=== PATIENT | female | born 1995 | race African-American/Black ===

== ENCOUNTER 2017-05-22 10:46 | Emergency (ER) | payer SELFPAY ==
--- NOTE | 2017-05-22 11:43 | ER Document Report ---
ED General - General Chief Complaint: Ear Pain Stated Complaint: LEFT EAR PAIN, DRAINING Time Seen by Provider: 05/22/17 11:11 Information source: Patient, Relative TRAVEL OUTSIDE OF THE [place] IN LAST 30 DAYS: No - HPI Onset/Duration: Gradual Quality of pain: Pressure, Sharp Severity: Mild Pain Level: 2 Associated symptoms: None Exacerbated by: Denies Relieved by: Denies - Related Data Allergies/Adverse Reactions: No Known Allergies Allergy (Verified 05/22/17 10:57) Past Medical History - Social History Smoking Status: Never Smoker Chew tobacco use (# tins/day): No Frequency of alcohol use: None Drug Abuse: Marijuana Family History: Reviewed & Not Pertinent Renal/ Medical History: Denies: Hx Peritoneal Dialysis Surgical Hx: Negative - Immunizations Hx Diphtheria, Pertussis, Tetanus Vaccination: Yes - not within 5 years of 2014 Review of Systems - Review of Systems Constitutional: No symptoms reported EENT: Ear pain, Ear discharge Cardiovascular: No symptoms reported Respiratory: No symptoms reported Musculoskeletal: No symptoms reported Skin: No symptoms reported Neurological/Psychological: No symptoms reported Physical Exam - Vital signs Vitals: Temp Pulse Resp BP Pulse Ox 98.7 F 85 14 114/70 98 05/22/17 10:54 05/22/17 10:54 05/22/17 10:54 05/22/17 10:54 05/22/17 10:54 - General General appearance: Appears well, Alert, Anxious - HEENT Head: Normocephalic, Atraumatic Ears: Normal External canal: Normal - Serous drainage from the left ear cannot visualize the tympanic membrane no external signs of swelling or requirement for WIC Tympanic membrane: Loss of landmarks Mouth/Lips: Normal Pharynx: Normal Neck: Normal - Respiratory Respiratory status: No respiratory distress Chest status: Nontender Breath sounds: Normal Chest palpation: Normal - Cardiovascular Rhythm: Regular Heart sounds: Normal auscultation Murmur: No - Neurological Neuro grossly intact: Yes Cognition: Normal Orientation: AAOx4 Ritu Coma Scale Eye Opening: Spontaneous [place] Coma Scale Verbal: Oriented [place] Coma Scale Motor: Obeys Commands [place] Coma Scale Total: 15 Speech: Normal Motor strength normal: LUE, RUE, LLE, RLE Sensory: Normal Course - Re-evaluation Re-evalutation: 05/22/17 15:32 Patient presents emergency department drainage from her left ear. She has wax in her ear since she has been using Tk pins to take it out in addition to Q- tips and peroxide. She said it felt a little irritated a day or 2 ago when she woke up this morning there was drainage on the pillow. She is hearing properly she has a serous otitis media. No pain with external manipulation of the ear or mastoiditis. Cannot visualize the tympanic membrane is it is behind the drainage. Placed her on antibiotics give her primary care and ENT for follow- up and discussed reasons for ED return sooner - Vital Signs Vital signs: Temp Pulse Resp BP Pulse Ox 98.7 F 83 17 112/73 99 05/22/17 10:54 05/22/17 11:57 05/22/17 11:57 05/22/17 11:57 05/22/17 11:57 Discharge - Discharge Clinical Impression: Left serous otitis media Qualifiers: Chronicity: acute Recurrence: not specified as recurrent Qualified Code(s): H65.02 - Acute serous otitis media, left ear Condition: Stable Disposition: HOME, SELF-CARE Additional Instructions: Serous Otitis Media You have serous otitis -- a vacuum or a fluid build-up in your middle ear cavity. This is caused by blockage of the eustachian tube, which connects the middle ear cavity to the back of the throat. Serous otitis is usually treated with decongestants. Antibiotics are given if there is a question of either early or chronic ear infection. Maneuvers to open the eustachian tube may help. For example, holding your nose then gently "breathing" air up against the closed nostrils may "pop" the eardrums (meaning the eustachian tube has opened). Unfortunately, this condition sometimes takes days or weeks to resolve. In young children, tubes may be required if serous otitis continues despite treatment. A second exam is usually scheduled to see if the problem has improved. If you develop severe ear pain, drainage from the ear, headache, or fever, call the doctor or return for re-examination. Prescriptions: Amoxicillin 500 mg PO QID #28 capsule Forms: Return to Work Referrals: [facility] [Provider Group] - Follow up in 3-5 days
[2017-05-22 12:00] VITALS: BP 112/73
== END 2017-05-22 12:01 | disposition home or self-care (01) ==
LOC: ER 10:46
DX: H65.02 Acute serous otitis media, left ear (principal); H92.12 Otorrhea, left ear; H92.02 Otalgia, left ear
CPT/HCPCS: 99282

== ENCOUNTER 2017-08-18 23:45 | Emergency (ER) | payer SELFPAY ==
[2017-08-18 23:55] VITALS: BP 115/71
--- NOTE | 2017-08-19 00:14 | ER Document Report ---
ED General - General Chief Complaint: Swallowed Foreign Body Stated Complaint: DIFFICULTY SWALLOWING Time Seen by Provider: 08/19/17 00:13 Mode of Arrival: Ambulatory Information source: Patient Notes: This is a 22-year-old female with no significant medical problems who presents to the emergency room with a sensation of foreign body in the throat after eating a Dorito chip. The patient states that got stuck. This occurred just prior to arrival TRAVEL OUTSIDE OF THE [place] IN LAST 30 DAYS: No - HPI Onset: Just prior to arrival Onset/Duration: Sudden Quality of pain: No pain Severity: None Pain Level: Denies Associated symptoms: denies: Chills, Fever, Shortness of breath Exacerbated by: Denies Relieved by: Denies Similar symptoms previously: No Recently seen / treated by doctor: No - Related Data Allergies/Adverse Reactions: No Known Allergies Allergy (Verified 05/22/17 10:57) Past Medical History - General Information source: Patient - Social History Smoking Status: Never Smoker Cigarette use (# per day): No Chew tobacco use (# tins/day): No Frequency of alcohol use: None Drug Abuse: None Lives with: Family Family History: Reviewed & Not Pertinent Patient has suicidal ideation: No Patient has homicidal ideation: No - Medical History Medical History: Negative Renal/ Medical History: Denies: Hx Peritoneal Dialysis Surgical Hx: Negative - Immunizations Hx Diphtheria, Pertussis, Tetanus Vaccination: Yes - not within 5 years of 2014 Review of Systems - Review of Systems Constitutional: denies: Chills, Fever EENT: See HPI Cardiovascular: No symptoms reported Respiratory: See HPI Gastrointestinal: No symptoms reported Genitourinary: No symptoms reported Female Genitourinary: No symptoms reported Musculoskeletal: No symptoms reported Skin: No symptoms reported Hematologic/Lymphatic: No symptoms reported Neurological/Psychological: No symptoms reported Physical Exam - Vital signs Vitals: Temp Pulse Resp BP Pulse Ox 98.3 F 105 H 20 115/71 100 08/18/17 23:50 08/18/17 23:50 08/18/17 23:50 08/18/17 23:50 08/18/17 23:50 Notes: Physical exam: GENERAL: 22-year-old female, alert and oriented 3, no acute distress HEAD: Atraumatic, normocephalic. EYES: Pupils equal round and reactive to light, extraocular movements intact, sclera anicteric, conjunctiva are normal. ENT: No stridor. oropharynx clear without exudates. Tip of her epiglottis can be visualized with gag reflex. No obvious foreign bodies. Moist mucous membranes. NECK: Normal range of motion, supple without obvious mass or JVD. LUNGS: Breath sounds clear to auscultation bilaterally and equal. No wheezes rales or rhonchi. HEART: Regular rate and rhythm without murmurs, rubs or gallops. ABDOMEN: Soft, normoactive bowel sounds. No tenderness to palpation. No guarding, no rebound. No masses appreciated. EXTREMITIES: Normal range of motion, no pitting or edema. No clubbing or cyanosis. NEUROLOGICAL: Cranial nerves II through XII grossly intact. Normal speech, moving all extremities. PSYCH: Normal mood, normal affect. SKIN: Warm, Dry, normal turgor, no rashes or lesions noted. Course - Re-evaluation Re-evalutation: 08/19/17 01:44 I was able to get a very good look of the pharynx with a tongue depressor. During the exam, she had forced gagging and she felt the obstruction resolved. She was able to drink after. X-rays show no foreign body. On repeat exam, she feels better and is able to drink water. She does state that it feels scratchy but she is able to swallow. - Vital Signs Vital signs: Temp Pulse Resp BP Pulse Ox 98.3 F 105 H 20 115/71 100 08/18/17 23:50 08/18/17 23:50 08/18/17 23:50 08/18/17 23:50 08/18/17 23:50 - Diagnostic Test Radiology reviewed: Image reviewed, Reports reviewed - Soft tissue neck x-ray shows no foreign body Discharge - Discharge Clinical Impression: Foreign body throat Condition: Stable Disposition: HOME, SELF-CARE Additional Instructions: Thank you for choosing [facility] for your care. The examination and treatment you have received in the Emergency Department today has been rendered on an emergency basis only and is not intended to be a substitute for complete medical care. You should contact your follow-up physician as it is important that he or she examine you for any new or remaining problems. If given a copy of any lab tests or radiology reports, please bring them with you when you see your physician. If your problem worsens or new symptoms appear and you are unable to arrange prompt follow-up care, return to the Emergency Department. Specific signs to look out for: Worsening pain with swallowing, difficulty swallowing, unable to swallow Any other instructions: Can take Mylanta, salt water rinses. Eat soft food for the next day. Follow- up with your doctor on Monday.
--- NOTE | 2017-08-19 00:55 | RADIOLOGY REPORT (SQ) ---
EXAM DESCRIPTION: SOFT TISSUE NECK COMPLETED DATE/TIME: 08/19/2017 12:44 am REASON FOR STUDY: r/o fb COMPARISON: None. NUMBER OF VIEWS: Two views. TECHNIQUE: AP and lateral radiographic image of the soft tissues of the neck. LIMITATIONS: None. FINDINGS: EPIGLOTTIS: Normal. Contour normal. Aryepiglottic folds normal. PREVERTEBRAL SOFT TISSUES: Normal. No soft tissue swelling. SUBGLOTTIC AREA: Normal. No narrowing. RETROPHARYNGEAL SPACE: Normal. No soft tissue masses. BONES: No significant findings. LUNG APICES: Normal. OTHER: No radiopaque foreign body. No other significant finding. IMPRESSION: NEGATIVE STUDY OF THE SOFT TISSUES OF THE NECK. TECHNICAL DOCUMENTATION: JOB ID: [id number] [employer]- All Rights Reserved
== END 2017-08-19 01:51 | disposition home or self-care (01) ==
LOC: ER 23:45
DX: T18.9XXA Foreign body of alimentary tract, part unspecified, initial encounter (principal)
CPT/HCPCS: 70360; 99284